=== PATIENT | male | born 1960 | race Caucasian/White ===

== ENCOUNTER → 2017-12-20 | Outpatient (CLI) | payer OTHER ==
[~2017-12-20] MED LIST: ASPI-496 PO; FINA5TAB4 PO; ROSU20TA PO; TAMS0.4C2 PO
== END ==
LOC: STAR 13:39
PROVIDERS: ATTEND Surgery
DX: Z02.9 Encounter for administrative examinations, unspecified (principal)

== ENCOUNTER 2017-12-24 12:57 | Day surgery (SDC) | payer OTHER ==
[~2017-12-24] VITALS: Ht 177.8 cm; Wt 66.5 kg
[2017-12-24] MEDS ORDERED: SODIUM CHLORIDE 0.9% 1,000 ML IV SCH (13:28)
[2017-12-24] MEDS ORDERED: LIDOCAINE 2%, 20ML ONE (13:35)
[2017-12-24] MEDS ORDERED: CEFAZOLIN PMX 1GM/50ML 50 ML IV STA (13:36)
[2017-12-24] MEDS ORDERED: MIDAZOLAM 1 MG/ML, 5ML ONE (13:47)
[2017-12-24] MEDS ORDERED: FENTANYL PF 100 MCG/2ML ONE (13:47)
[2017-12-24] MEDS ORDERED: HEPARIN 1,000 UNITS/ML, 10ML ONE (13:48)
[2017-12-24] MEDS ORDERED: FLUMAZENIL 0.1 MG/1 ML, 5ML ONE (13:48)
[2017-12-24] MEDS ORDERED: NALOXONE 1 MG/ML, 2ML ONE (13:48)
[2017-12-24] MEDS ORDERED: PROTAMINE SULFATE 10 MG/ML, 25ML ONE (13:48)
[2017-12-24 13:56] VITALS: BP 126/83
[2017-12-24 13:58] LABS: BASOPHILS # (AUTO) 0.02 x10^3/uL (0-0.1); BASOPHILS % (AUTO) 0 % (0-1); EOSINOPHILS # (AUTO) 0.35 x10^3/uL (0-0.4); EOSINOPHILS % (AUTO) 4 % (1-7); LYMPHOCYTES # (AUTO) 1.83 x10^3/uL (1-3.4); LYMPHOCYTES % (AUTO) 19 % (22-44); MD NO; MEAN CORPUSCULAR HEMOGLOBIN 30.5 pg (27.5-34.5); MEAN CORPUSCULAR HGB CONC 33.4 g/dL (33.2-36.2); MEAN CORPUSCULAR VOLUME 91.4 fL (81-97); MEAN PLATELET VOLUME 7.6 fL (7.4-10.4); MONOCYTES # (AUTO) 0.72 x10^3/uL (0.2-0.8); MONOCYTES % (AUTO) 7 % (2-9); NEUTROPHILS # (AUTO) 6.91 x10^3/uL (1.8-6.8); NEUTROPHILS % (AUTO) 70 % (42-75); PLATELET COUNT 269 x10^3/uL (130-400); RED BLOOD COUNT 5.59 x10^6/uL (4.38-5.82); RED CELL DISTRIBUTION WIDTH 14.2 % (9.4-14.8)
[2017-12-24 14:06] LABS: ANION GAP 6 mmol/L (5-15); CALCIUM 8.5 mg/dL (8.5-10.1); CHLORIDE 106 mmol/L (98-107); CREATININE 0.83 mg/dL (0.7-1.3)
[2017-12-24] MEDS ORDERED: CLOPIDOGREL 300 MG TABLET ONE (14:41)
[2017-12-24] MEDS ORDERED: VISIPAQUE 270 MG/ML, 150ML BOTTLE ONE (15:11)
== END 2017-12-24 17:15 | disposition home or self-care (01) ==
LOC: OUT 12:57
PROVIDERS: ATTEND Surgery
DX: I70.212 Atherosclerosis of native arteries of extremities with intermittent claudication, left leg (principal); E78.00 Pure hypercholesterolemia, unspecified; Z79.82 Long term (current) use of aspirin; Z79.899 Other long term (current) drug therapy; Z72.0 Tobacco use; Z82.49 Family history of ischemic heart disease and other diseases of the circulatory system
CPT/HCPCS: 36415; 37221; 75625; 75716; 80048; 85025; 99156; 99157; C1751; C1760; C1769; C1876; C1894; J0690; J1644; J2250; J3010; J3490; J7030; Q9966; 75630; J2720; J2310

== ENCOUNTER → 2020-03-29 | Outpatient (CLI) | payer OTHER ==
[~2020-03-29] MED LIST changes: +ASPI81TA45 PO; +CLOP75TA PO; -ROSU20TA PO; +ROSU20TA2 PO; +ROSU40TA PO; +TAMS-11 PO
== END | disposition home or self-care (01) ==
LOC: STAR 09:28
PROVIDERS: ATTEND Surgery
DX: Z01.818 Encounter for other preprocedural examination (principal); Z20.828 Contact with and (suspected) exposure to other viral communicable diseases; K40.90 Unilateral inguinal hernia, without obstruction or gangrene, not specified as recurrent
CPT/HCPCS: 36415; 87635; 93005

== ENCOUNTER 2020-04-02 09:55 | Day surgery (SDC) | payer OTHER ==
[~2020-04-02] VITALS: Ht 177.8 cm; Wt 68.4 kg
[~2020-04-02 09:55] MED LIST changes: +BUPIVACAINE/PF 0.5% ONE; +EPINEPHRINE 1 MG/ML, 1ML ONE
[2020-04-02] MEDS ORDERED: CHLORHEXIDINE 15 ML UDC ONE (10:06)
[2020-04-02] MEDS ORDERED: LACTATED RINGERS 1,000 ML IV SCH (10:19)
[2020-04-02] MEDS ORDERED: CHLORHEXIDINE 15 ML UDC MM ONE (10:30)
[2020-04-02] MEDS ORDERED: ROCURONIUM 10MG/ML,5ML ONE (10:39)
[2020-04-02] MEDS ORDERED: MIDAZOLAM 1 MG/ML, 2ML ONE (10:49)
[2020-04-02] MEDS ORDERED: FENTANYL PF 250 MCG/5ML ONE (10:49)
[2020-04-02] MEDS ORDERED: CEFAZOLIN 1,000 MG ONE (10:52)
[2020-04-02] MEDS ORDERED: NEOSTIGMINE 1 MG/ML, 10ML ONE (10:52)
[2020-04-02] MEDS ORDERED: GLYCOPYRROLATE 0.2MG/1ML, 5ML ONE (10:52)
[2020-04-02] MEDS ORDERED: PROPOFOL 10 MG/ML, 20ML ONE (10:52)
[2020-04-02] MEDS ORDERED: ACETAMINOPHEN 325 MG TABLET PO PRN (12:00)
[2020-04-02] MEDS ORDERED: ONDANSETRON 2MG/ML, 2ML IVPush PRN (12:00)
[2020-04-02] MEDS ORDERED: LABETALOL 5MG/ML, 20ML IV PRN (12:00)
[2020-04-02] MEDS ORDERED: hydrALAzine 20 MG/ML, 1ML IV PRN (12:00)
[2020-04-02] MEDS ORDERED: morphine SULFATE 10 MG/ML, 1ML IVPush PRN (12:00)
[2020-04-02] MEDS ORDERED: FENTANYL PF 100 MCG/2ML IV PRN (12:00)
[2020-04-02] MEDS ORDERED: HYDROmorphone 1 MG/ML, 1ML INJ IVPush PRN (12:00)
[2020-04-02] MEDS ORDERED: MEPERIDINE/PF 25MG/0.5ML IVPush PRN (12:00)
[2020-04-02] MEDS ORDERED: OXYcodone 5 MG/5 ML ORAL.SOL UDC PO PRN (12:00)
[2020-04-02] MEDS ORDERED: KETOROLAC 30 MG/1 ML ONE (12:09)
[2020-04-02] MEDS ORDERED: OXYcodone 5 MG/5 ML ORAL.SOL UDC ONE (13:24)
== END 2020-04-02 16:15 | disposition home or self-care (01) ==
LOC: OUT 09:55
PROVIDERS: ATTEND Surgery
DX: K40.30 Unilateral inguinal hernia, with obstruction, without gangrene, not specified as recurrent (principal); D17.6 Benign lipomatous neoplasm of spermatic cord; E78.2 Mixed hyperlipidemia; J44.9 Chronic obstructive pulmonary disease, unspecified; I73.9 Peripheral vascular disease, unspecified; Z98.890 Other specified postprocedural states; Z79.82 Long term (current) use of aspirin; Z79.899 Other long term (current) drug therapy; Z72.0 Tobacco use
CPT/HCPCS: 49650; C1781; J0171; J0690; J1885; J2250; J2704; J2710; J3010; J7120; S2900